=== PATIENT | male | born 1980 | race Caucasian/White ===

== ENCOUNTER 2024-10-07 01:37 | Inpatient (IN) | payer OTHER ==
--- NOTE | 2024-10-07 01:44 | ED ---
Chest Pain HPI - General Stated Complaint: STEMI Time Seen by Provider: 10/07/24 01:37 Source: EMS Mode of arrival: EMS Limitations: no limitations - History of Present Illness Initial Comments: 44-year-old male with no reported past medical history who presents emergency department after he started having chest pain at home. Patient got home from work around 11 PM and was having crushing chest pain. He felt lightheaded as if he was going to pass out. EMS was called. Found that the patient was having an acute [place]. He arrives and states that his pain is a pressure sensation graded 8 out of 10. He has already been given aspirin 324 mg and 4 mg of Zofran. He denies previous cardiac history. Admits to smoking a pack and half per day. He does not see a primary care doctor. No ripping or tearing station to his back. No numbness, tingling or weakness in his extremities. No other alleviating, precipitating or modifying factors - Related Data Allergies Allergy/AdvReac Type Severity Reaction Status Date / Time No Known Allergies Allergy Verified 10/07/24 01:45 Review of Systems ROS Statement: Those systems with pertinent positive or pertinent negative responses have been documented in the HPI. ROS Other: All systems not noted in ROS Statement are negative. Past Medical History Past Medical History: No Reported History History of Any Multi-Drug Resistant Organisms: None Reported Past Surgical History: No Surgical Hx Reported Past Psychological History: Unable to Obtain Smoking Status: Current every day smoker Past Alcohol Use History: None Reported Past Drug Use History: None Reported - Past Family History Father Family Medical History: Diabetes Mellitus Additional Family Medical History / Comment(s): Bladder cancer, amputee, vascular and cardiac issues General Exam Limitations: no limitations General appearance: alert, other (ashen) Head exam: Present: atraumatic, normocephalic, normal inspection Eye exam: Present: normal appearance, PERRL, EOMI. Absent: scleral icterus, conjunctival injection, periorbital swelling ENT exam: Present: normal exam, mucous membranes moist Neck exam: Present: normal inspection. Absent: tenderness, meningismus, lymphadenopathy Respiratory exam: Present: normal lung sounds bilaterally. Absent: respiratory distress, wheezes, rales, rhonchi, stridor Cardiovascular Exam: Present: bradycardia, irregular rhythm, normal heart sounds. Absent: systolic murmur, diastolic murmur, rubs, gallop, clicks GI/Abdominal exam: Present: soft, normal bowel sounds. Absent: distended, tenderness, guarding, rebound, rigid Extremities exam: Present: normal inspection, full ROM, normal capillary refill. Absent: tenderness, pedal edema, joint swelling, calf tenderness Back exam: Present: normal inspection Neurological exam: Present: alert, oriented X3, CN II-XII intact Psychiatric exam: Present: normal affect, normal mood Skin exam: Present: warm, dry, intact, normal color. Absent: rash Course Vital Signs 10/07/24 10/07/24 01:39 01:45 Temperature 96.4 F L Pulse Rate 43 L 50 L Respiratory 17 17 Rate Blood Pressure 108/77 139/70 O2 Sat by Pulse 95 Oximetry Chest Pain MDM - MDM Was pt. sent in by a medical professional or institution (, [facility], [facility], urgent care, hospital, or group home...) When possible be specific @ -No Did you speak to anyone other than the patient for history (EMS, parent, family, police, friend...)? What history was obtained from this source @-Spoke with EMS for history Did you review nursing and triage notes (agree or disagree)? Why? @ -I reviewed and agree with nursing and triage notes Were old charts reviewed (outside hosp., previous admission, EMS record, old EKG, old radiological studies, urgent care reports/EKG's, group home records)? Report findings @ -No old charts were reviewed Differential Diagnosis (chest pain, altered mental status, abdominal pain women, abdominal pain men, vaginal bleeding, weakness, fever, dyspnea, syncope, headache, dizziness, GI bleed, back pain, seizure, CVA, palpatations, mental health, musculoskeletal)? @ -Differential Chest Pain: Stable Angina, Unstable Angina, STEMI, NSTEMI Aortic Dissection, Pneumothorax, Musculoskeletal, Esophageal Spasm GERD, Cholecystitis, Pancreatitis, Zoster, this is not meant to be an all-inclusive list. EKG interpreted by me (3pts min.). @ -yes, and demonstrates mobitz type 2. ST elevation 2, 3, aVF V3 through V6. 43. AR interval 221. QRS 114. QTc of 377. X-rays interpreted by me (1pt min.). @ -Yes and demonstrates cardiomegaly CT interpreted by me (1pt min.). @ -None done U/S interpreted by me (1pt. min.). @ -None done What testing was considered but not performed or refused? (CT, X-rays, U/S, labs)? Why? @ -None What meds were considered but not given or refused? Why? @ -None Did you discuss the management of the patient with other professionals (professionals i.e. Dr., PA, [facility], lab, RT, psych nurse, social problems specialist, aviation electronic warfare operator, teacher, state highway police officer, bottle caser)? Give summary @ -Spoke with Dr. Cheng from cardiology and with Dr. Cartagena for admission Was smoking cessation discussed for >3mins.? @ -No Was critical care preformed (if so, how long)? @ -40 minutes for STEMI activation Were there social determinants of health that impacted care today? How? (Homelessness, low income, unemployed, alcoholism, drug addiction, transportation, low edu. Level, literacy, decrease access to med. care, residential, rehab)? @ -No Was there de-escalation of care discussed even if they declined (Discuss DNR or withdrawal of care, Hospice)? DNR status @ -No What co-morbidities impacted this encounter? (DM, HTN, Smoking, COPD, CAD, Cancer, CVA, ARF, Chemo, Hep., AIDS, mental health diagnosis, sleep apnea, morbid obesity)? @ -Nicotine dependence Was patient admitted / discharged? Hospital course, mention meds given and route, prescriptions, significant lab abnormalities, going to OR and other pertinent info. @ -EMS did transmit EKG prior to hospital arrival and therefore prehospital STEMI is activated. Upon patient's arrival Dr. Cheng already present in the emergency department to help evaluate the patient. He is placed into trauma 1 and is placed on continuous pulse ox and cardiac monitoring. Twelve-lead EKG was performed which demonstrates ST elevation in the inferior leads. Laboratory studies are conducted. Chest x-ray was performed. Patient is given 4000 units of heparin, 1 mg of Dilaudid, 1 L of normal saline and 80 mg of atorvastatin. Patient will be taken to [facility]. Spoke with Dr. Frausto for the admission. Undiagnosed new problem with uncertain prognosis? @ -No Drug Therapy requiring intensive monitoring for toxicity (Heparin, Nitro, Insulin, Cardizem)? @ -No Were any procedures done? @ -No Diagnosis/symptom? @ -Acute chest pain, STEMI Acute, or Chronic, or Acute on Chronic? @ -Acute Uncomplicated (without systemic symptoms) or Complicated (systemic symptoms)? @ -Complicated Side effects of treatment? @ -No Exacerbation, Progression, or Severe Exacerbation? @ -No Poses a threat to life or bodily function? How? (Chest pain, [place], [place], pneumonia, PE, COPD, DKA, ARF, appy, cholecystitis, CVA, Diverticulitis, Homicidal, Suicidal, threat to staff... and all critical care pts) @ -Yes as patient is having a STEMI Disposition Clinical Impression: STEMI (ST elevation myocardial infarction), Chest pain, Second degree heart block Disposition: ADMITTED IP TO THIS [facility] Condition: Serious Is patient prescribed a controlled substance at d/c from ED?: No Time of Disposition: : Decision to Admit Reason: Admit from EC Decision Date: 10/07/24 Decision Time: :52
[2024-10-07] MEDS: HYDROmorphone 1 MG/ML 1 ML SYRINGE IVP STA (01:46)
[2024-10-07] MEDS: ATORVASTATIN 80 MG TAB PO STA (01:47)
[2024-10-07] MEDS: SODIUM CHLORIDE 0.9% 1,000 ML IV STA (01:47)
[2024-10-07] MEDS: HEPARIN SODIUM 1,000 UN/ML (10ML VL) IV ONE ×2 (01:48→02:14)
[2024-10-07] MEDS ORDERED: NALOXONE 0.4 MG/ML 1 ML VIAL IV PRN (01:52)
[2024-10-07] MEDS: IV FLUID CONTINUATION 1,000 ML IV ONE (01:54)
--- NOTE | 2024-10-07 02:01 | XR ---
EXAM: XR Chest, 1 View CLINICAL HISTORY: ITS.REASON XR Reason: chest pain TECHNIQUE: Frontal view of the chest. COMPARISON: No relevant prior studies available. FINDINGS: Lungs: No consolidation or mass. Pleural space: No acute findings. Heart: cardiomegaly. Bones/joints: No acute findings. IMPRESSION: No acute cardiopulmonary process.
--- NOTE | 2024-10-07 02:06 | P.CRDCN ---
History of Present Illness Consult date: 10/07/24 History of present illness: HISTORY OF PRESENTING ILLNESS: Patient with no prior medical history who has not seen any physicians in the recent past. Does not take any medications. Smokes 1-1/2 pack/day. Occasional alcohol use marijuana use. Denies any drug use. 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 For this his family activated EMS. On arrival on scene, EMS found that patient was having ST elevations in inferior leads along with bradycardia and hypotension. For this he was given 324 mg of aspirin, IV fluids and was transferred to the [facility] ER. Admission ECG shows second-degree AV block with Mobitz type II 2:1 conduction, ST elevations in inferior leads with reciprocal changes in anterolateral leads Chest x-ray showed mild pulmonary congestion with cardiomegaly REVIEW OF SYSTEMS: 14 point review of system is negative except what is mentioned above in HPI. PHYSICAL EXAMINATION: Neck: Brisk carotid upstroke, no jugular venous distention. Lungs: Clear to auscultation. Heart: Regular rate and rhythm, S1-S2, , no murmur or rub. Abdomen: Soft nontender, positive bowel sounds. Extremities: No edema, intact distal pulses. Neuro: Alert, oritented, no focal deficits. Detailed neuro exam was not performed. ASSESSMENT: # Inferior STEMI # Second-degree AV block Mobitz type II 2:1 Block PLAN: Emergent cardiac catheterization Further recommendations to follow Azeem Cheng MD, FACC, RPVI Thank you for allowing [facility] to participate in this patient's care. Feel free to reach out in case of any followup questions. Past Medical History Past Medical History: No Reported History History of Any Multi-Drug Resistant Organisms: None Reported Past Surgical History: No Surgical Hx Reported Past Psychological History: Unable to Obtain Smoking Status: Current every day smoker Past Alcohol Use History: None Reported Past Drug Use History: None Reported Medications and Allergies Allergies Allergy/AdvReac Type Severity Reaction Status Date / Time No Known Allergies Allergy Verified 10/07/24 01:45 Physical Exam Vitals: Vital Signs Temp Pulse Resp BP 10/07/24 01:39 96.4 F L 43 L 17 108/77 Intake and Output 10/06/24 10/06/24 10/07/24 14:59 22:59 06:59 Other: Weight 95.254 kg Results Current Medications Generic Name Dose Route Start Last Admin Trade Name Freq PRN Reason Stop Dose Admin Sodium Chloride 1,000 mls @ 999 mls/hr 10/07/24 01:42 10/07/24 01:47 Saline 0.9% IV 10/07/24 02:42 999 mls/hr .Q1H1M STA Administration Naloxone HCl 0.2 mg 10/07/24 01:52 Naloxone 0.4 Mg/Ml 1 Ml Vial IV Q2M PRN Opioid Reversal Intake and Output 10/06/24 10/06/24 10/07/24 14:59 22:59 06:59 Other: Weight 95.254 kg Patient Weight 10/07/24 06:59 Weight 95.254 kg
[2024-10-07] MEDS: MIDAZOLAM 2 MG/2 ML VIAL IVP ONE (02:10)
[2024-10-07] MEDS: fentaNYL (PF) 50 MCG/ML 2 ML AMP IVP ONE (02:10)
[2024-10-07] MEDS: LIDOCAINE 1% INJ 10MG/ML (20 ML MDV) SQ ONE (02:10)
[2024-10-07] MEDS: VERAPAMIL SYRINGE (5 MG/10 ML) INTRAARTER ONE (02:12)
[2024-10-07] MEDS: PRASUGREL 10 MG TAB PO ONE (02:22)
--- NOTE | 2024-10-07 02:35 | P.CARDCATH ---
Date of Procedure: 10/07/24 Preoperative Diagnosis: DIAGNOSTIC CORONARY ANGIOGRAPHY and LEFT HEART CATH REPORT PROCEDURES PERFORMED: Left heart catheterization Selective coronary angiography Moderate conscious sedation 15 mins Right radial access INDICATION: STEMI BRIEF HPI: 44-year-old heavy smoker no prior documented medical history, not seen any physician in the recent past presented to the hospital because of substernal chest pressure. On admission he was noticed to have inferior ST elevations on EKG lead 2 3 aVF with reciprocal changes. He also had evidence of second-degree Mobitz type II AV block with 2:1 conduction. For this he was taken to the [facility] emergently. CONSENT: I have explained the procedural steps of above-mentioned procedures in layman's terms to the patient. I discussed the risks (including but not limited to stroke, emergent vascular or cardiac surgery or ), benefits and alternative therapies for the above-mentioned procedure. I discussed the risks of sedation/analgesia and blood product administration (if indicated). The patient has indicated understanding and acceptance of these risks. Conscious Sedation: Patient's ECG, heart rate, blood pressure, pulse oximetry were monitored throughout the duration of procedure under my direct supervision. 1 mg Versed and 50 mcg Fentanyl were used for induction of moderate conscious sedation. Total duration of moderate concious sedation 15 minutes. PROCEDURAL DETAILS: Patient was prepped and draped in sterile fashion. 1% lidocaine was infiltrated over the right radial artery. Right radial access was obtained via modified seldinger technique. Medications: 4000 units of heparin and 325 of aspirin in the ER. 5mg of verapamil was administed in the radial sheet. 2500 units of Heparin was administed once the catheter reached the aortic root. Wires and Catheter used: J wire was advanced under fluroscopy to get to aortic root. 5 anguillan JR 4 diagnostic catheter was utilized obtain left ventricular pressure and pressure gradint across aortic valve. 5 anguillan JR 4 diagnostic catheter was used to selectively engage the right coronary ostium. 5 anguillan JL 3.5 diagnostic catheter was utilized to selectively engage the left coronary ostium. Angiographic images were reviewed in detail. Catheter and wire were removed. Radial sheet was flushed. The right radial sheath was removed and a TR band was placed. Patent hemostasis was achieved. The patient tolerated the procedure well. Patient was transported back to the post catheterization holding area in stable condition. TECHNICAL DETAILS Total radiation: 238 mGy Total fluro time: 2.2 minutes Total contrast used: Isovue 50 mL Complications: [none] Estimated Blood loss: less than 15 ml HEMODYNAMICS: Aortic Pressure: 120/76 mmHg. LV pressure: 126/10 mmHg. LVEDP 36 mmHg. There was no significant gradient across the aortic valve. SELECTIVE CORONARY ARTERIOGRAPHY: LEFT MAIN: The left main is short and large caliber vessel. It bifurcates into the LAD and circumflex. Left main appears angiographically normal. LEFT ANTERIOR DESCENDING CORONARY ARTERY: LAD is a large-caliber vessel which terminates at the apex. Proximal mid and distal LAD appears angiographically patent. Mid LAD gives medium caliber septal branch appears angiographically patent. Mid LAD gives rise to a large caliber diagonal branch which appears angiographically patent. LEFT CIRCUMFLEX CORONARY ARTERY: It is nondominant vessel. LCx is large caliber vessel. LCx appears angiographically patent. It gives rise to a large caliber OM branch which appears angiographically patent RIGHT CORONARY ARTERY: Dominant vessel. RCA is a very large caliber vessel around 5 mm. There is 100% occlusion at the junction of proximal and mid RCA. KRISTI 0 flow. Very faint [id number] collaterals filling distal PDA. IMPRESSION: 100% occluded mid RCA Angiographically patent left coronary system Severely elevated LVEDP PLAN: Emergent intervention of the RCA by Dr. Ness Performing Physician Azeem Cheng MD, FACC, RPVI Thank you for allowing [facility] to participate in this patient's care. Feel free to reach out in case of any followup questions.
[2024-10-07 02:38] LABS: ALT 41 U/L (4-49); AST 35 U/L (17-59); African American GFR (CKD) >90 (>60 ml/min/1.73 sqM); Albumin 4.3 g/dL (3.5-5.0); Alkaline Phosphatase 91 U/L (38-126); Anion Gap 14 mmol/L; Blood Urea Nitrogen 18 mg/dL (9-20); Carbon Dioxide 18 mmol/L (22-30); Chloride 101 mmol/L (98-107); Glucose 334 mg/dL (74-99); Magnesium 1.9 mg/dL (1.6-2.3); Non-African American GFR(CKD) 80 (>60 ml/min/1.73 sqM); Potassium 4.3 mmol/L (3.5-5.1); Sodium 133 mmol/L (137-145); Total Bilirubin 0.5 mg/dL (0.2-1.3); Total Protein 6.9 g/dL (6.3-8.2)
[2024-10-07 02:46] LABS: NT-Pro-B-Type Natriuretic Pept <20 pg/mL
[2024-10-07] MEDS: IOPAMIDOL-370 100ML BTL INJ ONE ×2 (03:01→03:18)
[2024-10-07 03:14] LABS: Basophils # (A) 0.1 k/uL (0-0.2); Basophils % (A) 1 %; Eosinophils # (A) 0.2 k/uL (0-0.7); Eosinophils % (A) 1 %; HCT 44.8 % (39.0-53.0); HGB 14.9 gm/dL (13.0-17.5); Lymphocytes # (A) 3.3 k/uL (1.0-4.8); Lymphocytes % (A) 29 %; MCH 28.2 pg (25.0-35.0); MCHC 33.2 g/dL (31.0-37.0); MCV 84.9 fL (80.0-100.0); Monocytes # (A) 0.4 k/uL (0-1.0); Monocytes % (A) 3 %; Neutrophils # (A) 7.3 k/uL (1.3-7.7); Neutrophils % (A) 65 %; Platelet Count 121 k/uL (150-450); RBC 5.28 m/uL (4.30-5.90); WBC 11.4 k/uL (3.8-10.6)
[2024-10-07] MEDS ORDERED: RX INFO: IV CONTRAST WAS GIVEN 1 EACH MISC MISCELLANE PRN (03:26)
[2024-10-07] MEDS ORDERED: ATROPINE SULFATE 0.1 MG/ML 10ML SYRINGE IV PRN (03:26)
[2024-10-07] MEDS ORDERED: ZOLPIDEM 5 MG TAB PO PRN (03:26)
[2024-10-07] MEDS ORDERED: MAG HYDROX/AL HYDROX/SIMETH 30 ML CUP PO PRN (03:26)
[2024-10-07] MEDS ORDERED: NITROGLYCERIN SL TABS 0.4 MG TAB SUBLINGUAL PRN (03:26)
--- NOTE | 2024-10-07 03:32 | P.PCN ---
Date of Procedure: 10/07/24 Operative Findings: PERCUTANEOUS CORONARY INTERVENTION Performing physician Scottie Oliveros M.D. Procedure Performed: 1. Successful stenting of the mid and proximal RCA using 5.0 x 33 and 5.0 x 18 mm Xience drug-eluting stent with an excellent angiographic results. 2. Adjunctive use of IVUS and manual and mechanical (Jasper catheter) thrombectomy (Penumbra) Indication: Acute inferior ST elevation myocardial infarction Approach: Right radial artery Complications: None Level of Sedation: Moderate with a sedation length of 43 minutes Procedure Discussion: Please refer to diagnostic heart catheterization was performed earlier by Dr. Cheng. Anticoagulation was initiated using heparin with continuous ACT monitoring and the patient was already loaded with 60 mg of Effient. I did engage the RCA using JR4 guiding catheter and crossed acute total occlusion of the RCA using a run-through wire. From the get go I did manual aspiration thrombectomy with extraction of small amount of red thrombus. I was unable to restore the flow in the RCA. I did balloon angioplasty initially using 4 mm noncompliant balloon with partial/KRISTI-1 flow in the right coronary artery. After that I did mechanical thrombectomy using the penumbra with no success in restoring the flow. I went again and used this time bigger balloon 5 mm balloon and I did PTCA ballooning of the RCA in the mid and proximal portion with that I was able to restore the flow. I stented the mid RCA using 5.0 x 33 mm and proximal RCA using 5 mm x 18 mm Xience CRISTHIAN both stents were overlapped over 2 mm and postdilated using 6 mm balloon after IVUS was performed and showed that the stent was not well expanded. Final angiogram showed excellent angiographic results with KRISTI-3 flow and the procedure was completed with no complication Postprocedure Management: 1. Dual antiplatelet therapy using aspirin and Effient for at least 12-month 2. Aggressive cholesterol control 3. Smoking cessation
[2024-10-07 03:42] LABS: Glucose,Whole Blood 282 mg/dL (70-110)
[2024-10-07] MEDS: SODIUM CHLORIDE 0.9% 1,000 ML in EMPTY BAG 1 BAG IV SCH (03:50)
[2024-10-07] MEDS ORDERED: DEXTROSE 50% SYRINGE 50 ML IVP PRN ×2 (04:05)
[2024-10-07 04:42] LABS: INR 1.1 (<1.2); Partial Thromboplastin Time 32.8 sec (22.0-30.0); Prothrombin Time 11.6 sec (10.0-12.5)
--- NOTE | 2024-10-07 06:48 | P.HPIM ---
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 denies any limitations to his activity at work upon arrival to home after work yesterday he suddenly started experiencing chest pain radiating to the left arm associated with feeling nauseous dizzy lightheaded short of breath and diaphoresis family noticed the symptoms notified EMS upon arrival they identified ST segment elevation gave him aspirin fluids and brought him to the hospital Utilities Ground Worker was activated and 2 s tents were successfully deployed in the RCA Patient currently symptoms free laying comfortable in bed denies any chest pain or trouble breathing denies any headache changes in vision or hearing denies any weakness numbness tingling in his extremities Patient admits to tobacco smoking denies any heavy alcohol admits to occasional marijuana review of systems Pertinent positives as noted in HPI. All other systems were reviewed and are negative on exam Constitutional: No acute distress, conversant, pleasant Eyes: Anicteric sclerae, moist conjunctiva, Pupils equal round reactive to light ENMT: NC/AT Oropharynx clear, no erythema, or exudates Neck: Supple, no masses, or JVD No carotid bruits No thyromegaly Lungs: Clear to auscultation Clear to percussion Normal respiratory effort, no accessory muscle use Cardiovascular: Heart regular in rate and rhythm, No murmurs, gallops, or rubs No peripheral edema Abdominal: Soft Nontender, no guarding, rebound or rigidity Abdomen moving with respiration Normoactive bowel sounds Extremities: No digital cyanosis No clubbing Pedal pulses intact and symmetrical Radial pulses intact and symmetrical No calf tenderness Psychiatric: Alert and oriented to person, place and time Appropriate affect fair judgement Neuro Muscles Strength 5/5 in all 4 extremities Sensation to light touch grossly present throughout Cranial nerves II-XII grossly intact Past Medical History Past Medical History: Myocardial Infarction ([place]) Additional Past Medical History / Comment(s): Hernia, Broken left arm Last Myocardial Infarction Date:: 10/07/24 History of Any Multi-Drug Resistant Organisms: None Reported Past Surgical History: No Surgical Hx Reported Additional Past Surgical History / Comment(s): [place] teeth Past Anesthesia/Blood Transfusion Reactions: No Reported Reaction Past Psychological History: No Psychological Hx Reported Smoking Status: Current every day smoker Past Alcohol Use History: None Reported Past Drug Use History: None Reported - Past Family History Father Family Medical History: Diabetes Mellitus Additional Family Medical History / Comment(s): Bladder cancer, amputee, vascular and cardiac issues Medications and Allergies Allergies Allergy/AdvReac Type Severity Reaction Status Date / Time No Known Allergies Allergy Verified 10/07/24 01:45 Physical Exam Vitals: Vital Signs Temp Pulse Pulse Resp BP BP Pulse Ox 10/07/24 05:45 78 13 142/84 99 10/07/24 05:30 80 13 138/88 99 10/07/24 05:15 75 13 135/90 99 10/07/24 05:00 75 12 122/90 99 10/07/24 04:45 85 13 113/90 100 10/07/24 04:35 98.2 F 90 16 113/90 10/07/24 04:30 98.2 F 67 13 120/87 98 10/07/24 04:15 85 18 146/87 99 10/07/24 04:00 84 14 146/87 98 10/07/24 03:45 73 13 146/87 99 10/07/24 03:37 97 10/07/24 01:45 50 L 17 139/70 95 10/07/24 01:39 96.4 F L 43 L 17 108/77 Intake and Output 10/06/24 10/06/24 10/07/24 14:59 22:59 06:59 Intake Total 525 Balance 525 Intake: IV 525 Sodium Chloride 0.9% 1, 225 000 ml In Empty Bag 1 bag @ 75 mls/hr IV .[id number] [facility] Rx#:[id number] Other: Weight 95.254 kg Results CBC & Chem 7: 10/07/24 01:45 10/07/24 01:45 Labs: Abnormal Lab Results - Last 24 Hours (Table) 10/07/24 10/07/24 10/07/24 Range/Units 01:45 01:45 03:39 WBC 11.4 H (3.8-10.6) k/uL Plt Count 121 L (150-450) k/uL APTT (22.0-30.0) sec Sodium 133 L (137-145) mmol/L Carbon Dioxide 18 L (22-30) mmol/L Glucose 334 H (74-99) mg/dL POC Glucose (mg/dL) 282 H (70-110) mg/dL 10/07/24 Range/Units 04:16 WBC (3.8-10.6) k/uL Plt Count (150-450) k/uL APTT 32.8 H (22.0-30.0) sec Sodium (137-145) mmol/L Carbon Dioxide (22-30) mmol/L Glucose (74-99) mg/dL POC Glucose (mg/dL) (70-110) mg/dL Thrombosis Risk Factor Assmnt - Choose All That Apply Any of the Below Risk Factors Present?: Yes Each Factor Represents 1 point: Acute [place], Age 41-60 years Other Risk Factors: No Other congenital or acquired thrombophilia - If yes, enter type in comment: No Thrombosis Risk Factor Assessment Total Risk Factor Score: 2 Thrombosis Risk Factor Assessment Level: Low Risk Assessment and Plan Assessment: 44-year-old male no significant past medical history does not see a doctor coming in sudden onset chest pain I discussed case with ED doctor and accepted the admission for STEMI with anticipated length of stay more than 2 midnights STEMI status post successful PCI with 2 stents deployed in the RCA Continue daily aspirin Continue with Effient Continue statin Check lipid panel Cardiology consult Cardiac monitoring ICU care Check echocardiogram EKG showing inferior leads ST elevation [place] with bradycardia Troponins negative New onset diabetes mellitus Random blood sugar more than 200 Check A1c Insulin sliding scale Patient started on Farxiga by cardiology Hypertension Start patient on losartan Continue with metoprolol per cardiology Blood work overall unremarkable white count 11.4 hemoglobin 14.9 sodium 135 potassium 4.3 BUN 18 creatinine 1.2 all unremarkable Troponins negative TSH 0.66 unremarkable Full code DVT prophylaxis Lovenox 40 mg subcu daily
[2024-10-07 06:59] LABS: Glucose,Whole Blood 126 mg/dL (70-110)
[2024-10-07] MEDS: INSULIN LISPRO (HumaLOG) 100 UNIT/ML 10 mL VL SQ SCH (07:04)
[2024-10-07] MEDS: ASPIRIN 81 MG PO SCH ×2 (09:04→09:05)
[2024-10-07] MEDS: ENOXAPARIN 40 MG/0.4 ML SYRINGE SQ SCH (09:05)
[2024-10-07] MEDS: FUROSEMIDE 40 MG TAB PO SCH (09:05)
[2024-10-07] MEDS: METOPROLOL TARTRATE 25 MG TAB PO SCH (09:05)
[2024-10-07] MEDS: DAPAGLIFLOZIN PROPANEDIOL 10 MG TABLET PO SCH (09:05)
[2024-10-07] MEDS: LOSARTAN 25 MG TAB PO SCH (09:05)
[2024-10-07 11:44] LABS: Glucose,Whole Blood 211 mg/dL (70-110)
--- NOTE | 2024-10-07 12:34 | CA ---
Transthoracic Echo Report Name: Mathieu Ann Age: 44 Gender: M : 1980 Exam Date: 10/07/2024 09:32 Exam Location: [place] [facility] Ht (in): 75 Wt (lb): 210 Ordering Physician: Scottie Oliveros MD ([id number]) Attending/Referring Phys: Welder Repair Dora Burnett RDCS Procedure CPT: Indications: stemi Cardiac Hx: Technical Quality: Technically difficult study Contrast 1: Definity Total Dose (mL): 2 Contrast 2: Total Dose (mL): MEASUREMENTS (Male / Female) Normal Values 2D ECHO LV Diastolic Diameter PLAX 4.4 cm 4.2 - 5.9 / 3.9 - 5.3 cm LV Systolic Diameter PLAX 3.1 cm IVS Diastolic Thickness 1.3 cm 0.6 - 1.0 / 0.6 - 0.9 cm LVPW Diastolic Thickness 1.5 cm 0.6 - 1.0 / 0.6 - 0.9 cm LV Relative Wall Thickness 0.6 RV Internal Dim ED PLAX 3.0 cm LVOT Diameter 2.6 cm LV Diastolic Volume MOD BP 137.9 cm??? 67 - 155 / 56 - 104 cm??? LV Systolic Volume MOD BP 53.0 cm??? 22 - 58 / 19 - 49 cm??? LV Ejection Fraction MOD BP 61.6 % >= 55 % LV Cardiac Index MOD BP 3013.0 cm???/min???m??? LV Diastolic Volume MOD 4C 130.4 cm??? LV Systolic Volume MOD 4C 45.3 cm??? LV Ejection Fraction MOD 4C 65.3 % LV Cardiac Index MOD 4C 3020.9 cm???/min???m??? LV Diastolic Length 4C 9.5 cm LV Systolic Length 4C 7.2 cm LV Diastolic Volume MOD 2C 141.0 cm??? LV Systolic Volume MOD 2C 55.8 cm??? LV Ejection Fraction MOD 2C 60.4 % LV Cardiac Index MOD 2C 3023.1 cm???/min???m??? LV Diastolic Length 2C 9.2 cm LV Systolic Length 2C 8.0 cm LA Volume 43.1 cm??? 18 - 58 / 22 - 52 cm??? LA Volume Index 19.1 cm???/m??? 16 - 28 cm???/m??? M-MODE Aortic Root Diameter MM 3.2 cm LA Systolic Diameter MM 3.6 cm LA Ao Ratio MM 1.1 AV Cusp Separation MM 2.1 cm DOPPLER LVOT Peak Velocity 115.9 cm/s LVOT Peak Gradient 5.4 mmHg LVOT Velocity Time Integral 23.7 cm LVOT Stroke Volume 123.2 cm??? LVOT Stroke Volume Index 55.0 ml/m??? LVOT Cardiac Index 4371.2 cm???/min???m??? MV Area PHT 3.0 cm??? Mitral E Point Velocity 78.3 cm/s Mitral A Point Velocity 94.7 cm/s Mitral E to A Ratio 0.8 MV Deceleration Time 251.6 ms MV E' Velocity 9.9 cm/s Mitral E to MV E' Ratio 7.9 FINDINGS Left Ventricle Mildly increased left ventricular wall thickness. Left ventricular cavity size normal. Hypokinetic basal and mid inferior wall. Left ventricular ejection fraction is estimated at 50-55 %. Diastolic function is indetermined. Right Ventricle Normal right ventricular size and function. Right ventricular systolic pressure within normal limits. Right Atrium Normal right atrial size. Left Atrium Normal left atrial size. Mitral Valve Structurally normal mitral valve. No mitral stenosis, regurgitation or prolapse. Aortic Valve Trileaflet aortic valve. No aortic valve stenosis or regurgitation. Tricuspid Valve Structurally normal tricuspid valve. Trace tricuspid regurgitation. Pulmonic Valve Structurally normal pulmonic valve. Pericardium No pericardial effusion. Aorta Normal size aortic root and proximal ascending aorta. CONCLUSIONS Technically difficult study. Left ventricular ejection fraction is estimated at 50-55 %. Hypokinetic basal and mid inferior wall. Normal right ventricular size and function. No significant valve dysfunction Previewed by: Dr Azeem Cheng (Electronically Signed) Final Date: 07 October 2024 12:33
[2024-10-07 13:35] LABS: LDL Cholesterol,Calculated 112.7 mg/dL (0.0-131.0)
[2024-10-07 16:27] LABS: Glucose,Whole Blood 154 mg/dL (70-110)
[2024-10-07] MEDS: NICOTINE 21MG/24HR PATCH TRANSDERM SCH (18:48)
[2024-10-07 20:17] LABS: Glucose,Whole Blood 166 mg/dL (70-110)
[2024-10-07] MEDS: ATORVASTATIN 80 MG TAB PO SCH (20:46)
[2024-10-07 21:42] VITALS: TEMP 98.2
[2024-10-08 06:16] LABS: Glucose,Whole Blood 133 mg/dL (70-110)
[2024-10-08 08:11] LABS: Basophils # (A) 0.1 k/uL (0-0.2); Basophils % (A) 0 %; Eosinophils # (A) 0.3 k/uL (0-0.7); Eosinophils % (A) 2 %; HCT 44.8 % (39.0-53.0); HGB 14.7 gm/dL (13.0-17.5); Lymphocytes # (A) 4.2 k/uL (1.0-4.8); Lymphocytes % (A) 32 %; MCH 27.9 pg (25.0-35.0); MCHC 32.8 g/dL (31.0-37.0); MCV 85.1 fL (80.0-100.0); Mean Platelet Volume 7.9; Monocytes # (A) 0.7 k/uL (0-1.0); Monocytes % (A) 5 %; Neutrophils # (A) 7.6 k/uL (1.3-7.7); Neutrophils % (A) 58 %; RBC 5.26 m/uL (4.30-5.90); WBC 13.1 k/uL (3.8-10.6)
[2024-10-08 08:23] LABS: African American GFR (CKD) >90 (>60 ml/min/1.73 sqM); Anion Gap 8 mmol/L; Blood Urea Nitrogen 14 mg/dL (9-20); Carbon Dioxide 26 mmol/L (22-30); Chloride 102 mmol/L (98-107); Glucose 118 mg/dL (74-99); Non-African American GFR(CKD) >90 (>60 ml/min/1.73 sqM); Potassium 4.1 mmol/L (3.5-5.1); Sodium 136 mmol/L (137-145)
[2024-10-08 08:36] LABS: Platelet Count 272 k/uL (150-450)
[2024-10-08 08:44] VITALS: BP 101/58; PULSE 76; RESP 14
[2024-10-08] MEDS: PRASUGREL 10 MG TAB PO SCH (08:47)
--- NOTE | 2024-10-08 10:53 | P.DS ---
Providers Date of admission: 10/07/24 01:52 Expected date of discharge: 10/08/24 Attending physician: Kaiser Frausto MD Consults: 10/07/24 01:52 Consult Physician Stat Consulting Provider: Jamie Jones Consult Reason/Comments: STEMI Do you want consulting provider notified?: Yes 10/07/24 03:26 Consult Physician Routine Consulting Provider: Jamie Jones Consult Reason/Comments: Post Interventional patient Do you want consulting provider notified?: Already Contacted Primary care physician: Stated None Hospital Course: 44 year old M with no PMH presented to the ED for chest pain. In the ED he underwent extensive evaluation. BP 108/77, HR 43, T 96.4F, RR 17, 95% on RA. CBC, Coag panel, CMP significant for WBC 11.4, Plt 121, APTT 32.8, Na 133, bic arb 18, glu 334. Trop < 0.012. BNP < 20. Mag 2.0. TSH 0.666. Lipid panel TG 181, T. Chol 177, LDL 112.7. EKG with ST elevation in the inferior leads. CXR negative. Admitted for STEMI. Underwent cardiac cath showing 100% occluded RCA with successful stenting. A1c 7.2. Echo EF 55% with hypokinetic basal and mid inferior wall. 10/08 Patient was seen and examined. Feeling well. No more chest pain. Discussed with Dr. Cheng, cleared for discharge. CBC and BMP significant for WBC 13.1, Na 136, glu 118. Discharge Plan New prescriptions: ASA 81 mg PO QD, Losartan 25 mg PO QD, Effient 10 mg PO QD, Lipitor 80 mg PO QHS, Metformin 500 mg PO BID, Farxiga 10 mg PO QD, Metoprolol 25 mg PO BID, SL Nitro PRN. Advised importance of taking medications. We did discuss diabetic diet. Follow up with PCP within 1-2 days and Cardiology within 1 week of discharge. General: non toxic, no distress, appears at stated age Derm: warm, dry Head: atraumatic, normocephalic, symmetric Mouth: no lip lesion, mucus membranes moist Cardiovascular: S1S2 reg, no murmur Lungs: Clear to auscultation bilaterally, no rales , no accessory muscle use Ext: no gross muscle atrophy, no edema, no contractures Neuro: no focal neuro deficits Psych: Alert and oriented. Discharge Diagnosis: STEMI Newly diagnosed diabetes mellitus Hypertension Leukocytosis likely reactive with no signs of active infection Nicotine abuse Obesity This complex discharge took 35 minutes to complete. Patient Condition at Discharge: Stable Plan - Discharge Summary Discharge Rx Participant: No New Discharge Prescriptions: New Aspirin 81 mg PO DAILY 90 Days #90 tab Losartan [Cozaar] 25 mg PO DAILY 90 Days #90 tab Prasugrel [Effient] 10 mg PO DAILY 90 Days #90 tab Atorvastatin [Lipitor] 80 mg PO HS 90 Days #90 tab metFORMIN HCL 500 mg PO BID 90 Days #180 tablet Dapagliflozin Propanediol [Farxiga] 10 mg PO DAILY 90 Days #90 tab Metoprolol Tartrate [Lopressor] 25 mg PO BID 90 Days #180 tab Nitroglycerin Sl Tabs [Nitrostat] 0.4 mg SUBLINGUAL Q5M PRN 30 Days #30 tab PRN Reason: Chest Pain Discharge Medication List Aspirin 81 mg PO DAILY 90 Days #90 tab 10/08/24 [Rx] Atorvastatin [Lipitor] 80 mg PO HS 90 Days #90 tab 10/08/24 [Rx] Dapagliflozin Propanediol [Farxiga] 10 mg PO DAILY 90 Days #90 tab 10/08/24 [Rx] Losartan [Cozaar] 25 mg PO DAILY 90 Days #90 tab 10/08/24 [Rx] Metoprolol Tartrate [Lopressor] 25 mg PO BID 90 Days #180 tab 10/08/24 [Rx] Nitroglycerin Sl Tabs [Nitrostat] 0.4 mg SUBLINGUAL Q5M PRN 30 Days #30 tab 10/08/24 [Rx] Prasugrel [Effient] 10 mg PO DAILY 90 Days #90 tab 10/08/24 [Rx] metFORMIN HCL 500 mg PO BID 90 Days #180 tablet 10/08/24 [Rx] Follow up Appointment(s)/Referral(s): Azeem Cheng MD [Medical Doctor] - 1 Week None,Stated [Primary Care Provider] - 1-2 days Activity/Diet/Wound Care/Special Instructions: Diet: Cardiac, Diabetic Discharge Disposition: HOME SELF-CARE
--- NOTE | 2024-10-08 19:28 | P.PN ---
Subjective Progress Note Date: 10/08/24 HISTORY OF PRESENTING ILLNESS: Patient with no prior medical history who has not seen any physicians in the recent past. Does not take any medications. Smokes 1-1/2 pack/day. Occasional alcohol use marijuana use. Denies any drug use. 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 For this his family activated EMS. On arrival on scene, EMS found that patient was having ST elevations in inferior leads along with bradycardia and hypotension. For this he was given 324 mg of aspirin, IV fluids and was transferred to the [facility] ER. Admission ECG shows second-degree AV block with Mobitz type II 2:1 conduction, ST elevations in inferior leads with reciprocal changes in anterolateral leads Chest x-ray showed mild pulmonary congestion with cardiomegaly Progress note Patient seen and examined at bedside this a.m. He is very eager to go home. He denies any cardiovascular symptoms he is hemodynamically stable. His echocardiogram showed preserved LV size and systolic function with no post [place] complications. PHYSICAL EXAMINATION: Neck: Brisk carotid upstroke, no jugular venous distention. Lungs: Clear to auscultation. Heart: Regular rate and rhythm, S1-S2, , no murmur or rub. Abdomen: Soft nontender, positive bowel sounds. Extremities: No edema, intact distal pulses. Neuro: Alert, oritented, no focal deficits. Detailed neuro exam was not performed. ASSESSMENT: # Inferior STEMI status post PCI to RCA # Second-degree AV block Mobitz type II 2:1 Block, resolved after PCI # Tobacco smoker # Marijuana user # Obesity #Diabetes Echocardiogram showed an EF of 50 to 55% with basal inferior wall hypokinesia. Labs shows HbA1c 7.2, LDL 112, TG 181, PLAN: Continue dual antiplatelet therapy, with aspirin and prasugrel Continue Lipitor 80 mg Add Farxiga 10 mg daily, metformin 500 mg twice daily Add metoprolol 25 mg twice daily, losartan 12 times daily, Continue this medication without any interruptions, I have explained these instructions very clearly with the patient that he cannot stop his aspirin and prasugrel. I have explained him in detail that he should stop smoking and marijuana use Follow-up outpatient in 1 to 2 weeks. Objective - Vital Signs Vital signs: Vital Signs Temp 98.2 F 10/08/24 08:41 Pulse 76 10/08/24 08:41 Resp 14 10/08/24 08:41 BP 101/58 10/08/24 08:41 Pulse Ox 95 10/08/24 08:41 FiO2 Intake & Output 10/08/24 10/08/24 10/09/24 06:59 18:59 06:59 Intake Total Balance Weight Intake: Oral Other: Voiding Method Toilet Urinal # Voids 0 # Bowel Movements 0 - Labs CBC & Chem 7: 10/08/24 07:25 10/08/24 07:25 Labs: Abnormal Lab Results - Last 24 Hours (Table) 10/07/24 10/08/24 10/08/24 Range/Units 20:16 06:15 07:25 WBC 13.1 H (3.8-10.6) k/uL Sodium (137-145) mmol/L Glucose (74-99) mg/dL POC Glucose (mg/dL) 166 H 133 H (70-110) mg/dL 10/08/24 Range/Units 07:25 WBC (3.8-10.6) k/uL Sodium 136 L (137-145) mmol/L Glucose 118 H (74-99) mg/dL POC Glucose (mg/dL) (70-110) mg/dL
--- NOTE | 2024-10-09 22:44 | CDI ---
Documentation Clarification Form Date: 10/09/2024 10:35:50 PM From: Asha West Phone: Admit Date: 10/07/2024 01:52:00 AM Patient Name: Mathieu Ann Visit Number: [id number] Discharge Date: 10/08/2024 11:28:00 AM ATTENTION: The Clinical Documentation Specialists (CDI) and [employer] Coding Staff appreciate your assistance in clarifying documentation. Please respond to the clarification below the line at the bottom and electronically sign. The CDI & [employer] Coding staff will review the response and follow-up if needed. Please note: Queries are made part of the Legal Health Record. If you have any questions, please contact the author of this message via ITS. Doctor/Provider: Kaiser Frausto Diabetes is documented per DC Summary. Additional specificity regarding the diabetes diagnosis is requested. History/Risk Factors: 44yo M, RCA STEMI, DMII newly dx, HTN, obesity, smoker, AVB II Clinical Indicators: A1C 7.2 Glucose 10/07 282-334 10/08 118-166 Treatment: Insulin sliding scale; Patient started on Farxiga by cardiology Please clarify the type of diabetes, if known: [ X] Diabetes Type 2 with hyperglycemia [ ] Diabetes Type 2 with no complications [ ] Other, please specify [ ] Unable to Determine (Template Last Revised: September 2020) [ X] Diabetes Type 2 with hyperglycemia MTDD
== END 2024-10-08 11:28 | disposition home or self-care (01) | DRG 322 ==
LOC: EC 01:37 → 2SICU 01:52 → 3SCARD 14:12
PROVIDERS: ADMIT Internal Medicine; ATTEND Internal Medicine
PROC: B240ZZ3 Ultrasonography of Single Coronary Artery, Intravascular (ICD-10-PCS; 2024-10-07)
PROC: 027035Z Dilation of Coronary Artery, One Artery with Two Drug-eluting Intraluminal Devices, Percutaneous Approach (ICD-10-PCS; principal; 2024-10-07 01:50)
PROC: 02C03ZZ Extirpation of Matter from Coronary Artery, One Artery, Percutaneous Approach (ICD-10-PCS; 2024-10-07 01:50)
PROC: 4A023N7 Measurement of Cardiac Sampling and Pressure, Left Heart, Percutaneous Approach (ICD-10-PCS; 2024-10-07 01:50)
PROC: B2111ZZ Fluoroscopy of Multiple Coronary Arteries using Low Osmolar Contrast (ICD-10-PCS; 2024-10-07 01:50)
DX: I21.11 ST elevation (STEMI) myocardial infarction involving right coronary artery (principal); I23.6 Thrombosis of atrium, auricular appendage, and ventricle as current complications following acute myocardial infarction; I44.1 Atrioventricular block, second degree; D72.828 Other elevated white blood cell count; E11.65 Type 2 diabetes mellitus with hyperglycemia; E66.9 Obesity, unspecified; I11.9 Hypertensive heart disease without heart failure; I25.10 Atherosclerotic heart disease of native coronary artery without angina pectoris; I25.82 Chronic total occlusion of coronary artery; Z68.30 Body mass index [BMI] 30.0-30.9, adult; F17.210 Nicotine dependence, cigarettes, uncomplicated
CPT/HCPCS: 71045; 80048; 80053; 80061; 83036; 83735; 83880; 84443; 84484; 85025; 85610; 85730; 92973; 92978; 93005; 93306; 93458; 96374; 96375; 99291